=== PATIENT | female | born 1980 | race Caucasian/White ===

== ENCOUNTER 2022-09-13 10:07 | Emergency (ER) | payer BC ==
[2022-09-13 10:40] VITALS: BP 137/86; PULSE 78; O2SAT 98
--- NOTE | 2022-09-13 11:56 | ERPHSYRPT ---
- History of Present Illness Time Seen by Provider: 09/13/22 10:08 Source: patient Exam Limitations: no limitations Patient Subjective Stated Complaint: pt was sent from eye to be seen, she states she has a cataract to left eye that is known, she also states she has a n ew cataract to right eye and inflammation to left optic nerve Triage Nursing Assessment: pt alert, walked in, resp easy, skin w/d/p. 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 Patient reports no change in vision on the left eye. She does report having some kind of head injury more than 6 months ago. Denies any focal numbness tingling weakness. No eye discharge/pain/redness. Timing/Duration: week(s), gradual onset, worse Location: bilateral eyes Severity: moderate Apparent Injury: no Visual Assistive Devices: Glasses Allergies/Adverse Reactions: acetaminophen [From Vicodin] Allergy (Verified 09/13/22 11:07) hydrocodone [From Vicodin] Allergy (Verified 09/13/22 11:07) Home Medications: Meclizine HCl [Antivert] 25 mg PO DAILY 09/13/22 [History] Propranolol HCl [Propranolol HCl ER] 60 mg PO BID 09/13/22 [History] Topiramate 100 mg [Topamax 100 MG] 100 mg PO DAILY 09/13/22 [History] Hx Tetanus, Diphtheria Vaccination/Date Given: No Hx Influenza Vaccination/Date Given: No Hx Pneumococcal Vaccination/Date Given: No Immunizations Up to Date: Yes Travel Risk - International Travel Have you traveled outside of the country in past 3 weeks: No - Coronavirus Screening Are you exhibiting any of the following symptoms?: No Close contact with a COVID-19 positive Pt in past 14-21 Days: No - Vaccine Status Have you recieved a Covid-19 vaccination: No Safety And Security Manager: Unknown - Vaccination Dates Dates if Unknown: ? - Review of Systems Constitutional: No Symptoms Eyes: Other Ears, Nose, & Throat: No Symptoms Respiratory: No Symptoms Cardiac: No Symptoms Abdominal/Gastrointestinal: No Symptoms Skin: No Symptoms Neurological: Headache Psychological: No Symptoms Endocrine: No Symptoms Hematologic/Lymphatic: No Symptoms Immunological/Allergic: No Symptoms - Past Medical History Pertinent Past Medical History: Yes ENT History: Cataracts - Past Surgical History Past Surgical History: No - Social History Smoking Status: Never smoker Exposure to second hand smoke: Yes Drug Use: marijuana Patient Lives Alone: Yes - Female History Hx Last Menstrual Period: august Hx Now: No - Nursing Vital Signs Nursing Vital Signs: Initial Vital Signs Temperature 97.9 F 09/13/22 10:38 Pulse Rate 78 09/13/22 10:38 Respiratory Rate 18 09/13/22 10:38 Blood Pressure 137/86 09/13/22 10:38 O2 Sat by Pulse Oximetry 98 09/13/22 10:38 Pain Scale Pain Intensity 3 - Physical Exam General Appearance: no apparent distress, alert, anxiety Vision Acuity Right Eye: 20/800 Vision Acuity Left Eye: 20/50 Eye Exam: left eye: papilledema, bilateral eye: EOMI, abnormal pupil Ears, Nose, Throat Exam: normal ENT inspection Neck Exam: normal inspection, non-tender, supple, full range of motion Respiratory Exam: normal breath sounds, lungs clear Cardiovascular Exam: regular rate/rhythm, normal heart sounds Extremity Exam: normal inspection Neurologic: alert, oriented x 3, cooperative, nml cerebellar function, nml station & gait, No postpartum rn II-XII nml as tested, No normal mood/affect, No motor deficits Skin Exam: normal color SpO2 Interpretation: normal SpO2: 98 O2 Delivery: Room Air Ordered Tests: Active Orders 24 hr Category Date Time Status AMA [Release AMA] OM.NOW Care 09/13/22 11:59 Active - Progress Progress: unchanged Progress Note: 09/13/22 11:57 41-year-old with mature cataract on the right for quite some time is evaluated in the ER for having papilledema/left optic disc margin blunting noticed by pathology transcriptionist yesterday and was recommended to have MRI brain and orbit. Patient though denies having any new symptoms or acute symptoms. She has a stable vision per her. I have talked to MRI here but they cannot do it today. Closest place with MRI services and neurology speciality services is . I have discussed with patient about transfer and she agreed with it. I have spoken with Dr. Taylor neurology, reviewed history, recommended transfer to [facility] for further evaluation. I went back to discussed with patient about plan of transfer but this time she refused to go there by EMS. I have offered her to go there if she has someone else to drive her up there but she does not want to go with this plan as well. She wants to leave AGAINST MEDICAL ADVICE. I do not think it safe enough for patient to drive such a long distance on her own. I have discussed with patient about leaving AGAINST MEDICAL ADVICE would not only delay the diagnosis, worsening of morbidity and even having some acute neuro event leading to but she is still adamant to leave. 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 She is not confused or altered at all and walked out of the ER after signing AMA papers in a stable condition. 09/13/22 12:05 Counseled pt/family regarding: diagnosis Medical Desision Making - External Record(s) Reviewed Records reviewed as a part of evaluation & management: Clinic - Discussion of managment Care discussed with:: on-call "doc" (Dr. Taylor neurology) Will see patient: in ED - Risk of complications The pt has a high risk of morbidity or mortality based on: Decision regarding hospitilization or escalation of hosp level of care - Departure Departure Disposition: AMA Clinical Impression: Papilledema of left eye Condition: Stable Critical Care Time: No Referrals: YUAN HEREDIA MD [Primary Care Provider] - Follow up/PCP as directed
== END 2022-09-13 12:12 | disposition left against medical advice (07) ==
LOC: ED 10:07
DX: H47.10 Unspecified papilledema (principal); H47.022 Hemorrhage in optic nerve sheath, left eye; Z79.899 Other long term (current) drug therapy
CPT/HCPCS: 99284